=== PATIENT | female | born 1950 | race Caucasian/White ===

== ENCOUNTER 2018-05-18 14:34 | Emergency (ER) | payer MEDICARE, OTHER ==
--- NOTE | 2018-05-18 16:13 | ED ---
Neurological HPI - HPI Summary HPI Summary: A 67 y/o female presents to [facility] with a chief complaint of neck pain. She claims that she hit her head 1.5 weeks ago, but everything was fine for a week. She claims that the last few days she feels a throbbing pain in the top of her head, and yesterday she felt neck pain along with right sided facial numbness and ear pain. She describes her neck pain as sore. At triage she rated her pain as a 2/10 in severity. She also c/o chest pain. She reports that touching her neck aggravates her pain. - History of Current Complaint Chief Complaint: EDChestPainROMI Stated Complaint: CHEST PAIN/HEAD INJURY/FACIAL NUMBNESS/NECK PAIN Time Seen by Provider: 05/18/18 15:51 Hx Obtained From: Patient Hx Last Menstrual Period: Years ago. Onset/Duration: Sudden Onset, Started days ago, Still Present Timing: Constant Onset Severity: Mild Current Severity: Mild Pain Intensity: 2 Pain Scale Used: 0-10 Numeric Character: Numbness/Tingling, Other: - She hit her head 1.5 weeks ago Aggravating: Unknown - touch aggravates her neck pain Alleviating: Nothing Associated Signs and Symptoms: Positive: Headache, Numbness, Chest Pain. Negative: Fever - Allergy/Home Medications Allergies/Adverse Reactions: Allergies Allergy/AdvReac Type Severity Reaction Status Date / Time cephalexin [From Keflex] Allergy Unknown Verified 05/18/18 14:44 Reaction Details ciprofloxacin [From Cipro] Allergy Unknown Verified 05/18/18 14:44 Reaction Details clindamycin Allergy Unknown Verified 05/18/18 14:44 Reaction Details iodine Allergy Unknown Verified 05/18/18 14:44 Reaction Details latex Allergy Hives Verified 05/18/18 14:44 metronidazole [From Flagyl] Allergy Unknown Verified 05/18/18 14:44 Reaction Details Milk Containing Products Allergy GI Upset Verified 05/18/18 14:44 moxifloxacin [From Avelox] Allergy Hives Verified 05/18/18 14:44 prednisone Allergy Unknown Verified 05/18/18 14:44 Reaction Details sulfamethoxazole Allergy Hives Verified 05/18/18 14:44 [From Bactrim] trimethoprim [From Bactrim] Allergy Hives Verified 05/18/18 14:44 PMH/Surg Hx/FS Hx/Imm Hx Endocrine/Hematology History: Reports: Hx Thyroid Disease - hypothyroid Denies: Hx Diabetes Cardiovascular History: Denies: Hx Congestive Heart Failure, Hx Deep Vein Thrombosis, Hx Hypertension , Hx Myocardial Infarction, Hx Pacemaker/ICD Respiratory History: Denies: Hx Asthma, Hx Chronic Obstructive Pulmonary Disease (COPD), Hx Lung Cancer, Hx Pneumonia, Hx Pulmonary Embolism GI History: Reports: Hx Diverticulosis, Other GI Disorders - celiac's Denies: Hx Gall Bladder Disease, Hx Gastrointestinal Bleed, Hx Ulcer, Hx Urosepsis History: Denies: Hx Kidney Stones, Hx Renal Disease Musculoskeletal History: Denies: Hx Osteoporosis Sensory History: Reports: Hx Contacts or Glasses Denies: Hx Hearing Aid Opthamlomology History: Reports: Hx Contacts or Glasses Neurological History: Denies: Hx Dementia, Hx Migraine, Hx Seizures, Hx Transient Ischemic Attacks (TIA) Psychiatric History: Denies: Hx Anxiety, Hx Depression, Hx Panic Disorder, Hx Schizophrenia, Hx Bipolar Disorder - Cancer History Hx Chemotherapy: No Hx Radiation Therapy: No - Surgical History Surgery Procedure, Year, and Place[facility] [place] Hx Anesthesia Reactions: No - Immunization History Date of Tetanus Vaccine: unknown Infectious Disease History: No Infectious Disease History: Denies: Hx Clostridium Difficile, Hx Hepatitis, Hx Human Immunodeficiency Virus (HIV), Hx of Known/Suspected MRSA, Hx Shingles, Hx Tuberculosis, Hx Known/ Suspected VRE, Hx Known/Suspected VRSA, History Other Infectious Disease, Traveled Outside the [place] in Last 30 Days - Family History Known Family History: Positive: Hypertension, Other - breast cancer - Social History Alcohol Use: None Substance Use Type: Reports: None Smoking Status (MU): Never Smoked Tobacco Review of Systems Negative: Fever Positive: Ear Ache Musculoskeletal: Other - positive: neck pain Positive: Headache, Numbness All Other Systems Reviewed And Are Negative: Yes Physical Exam - Summary Physical Exam Summary: Appearance: The patient is well-nourished in no acute distress and in no acute pain. Skin: The skin is warm and dry and skin color reflects adequate perfusion. HEENT: The head is normocephalic and atraumatic. The pupils are equal and reactive. The conjunctivae are clear and without drainage. Nares are patent and without drainage. Mouth reveals moist mucous membranes and the throat is without erythema and exudate. The external ears are intact. Fluid behind right eardrum. The tympanic membranes are intact. Neck: The neck is supple with full range of motion and non-tender. There are no carotid bruits. There is no neck vein distension. Respiratory: Chest is non-tender. Lungs are clear to auscultation and breath sounds are symmetrical and equal. Cardiovascular: Heart is regular rate and rhythm. There is no murmur or rub auscultated. There is no peripheral edema and pulses are symmetrical and equal. Abdomen: The abdomen is soft and non-tender. There are normal bowel sounds heard in all four quadrants and there is no organomegaly palpated. Musculoskeletal: There is no back tenderness noted. Extremities are non-tender with full range of motion. There is good capillary refill. There is no peripheral edema or calf tenderness elicited. Neurological: Tender right posterior occipital lobe. Patient is alert and oriented to person, place and time. The patient has symmetrical motor strength in all four extremities. Cranial nerves are grossly intact. Deep tendon reflexes are symmetrical and equal in all four extremities. Psychiatric: The patient has an appropriate affect and does not exhibit any anxiety or depression. Triage Information Reviewed: Yes Vital Signs On Initial Exam: Initial Vitals Temp Pulse Resp BP Pulse Ox 98.0 F 72 16 167/90 99 05/18/18 14:36 05/18/18 14:36 05/18/18 14:36 05/18/18 14:36 05/18/18 14:36 Vital Signs Reviewed: Yes - Enedelia Coma Scale Best Eye Response: 4 - Spontaneous Best Motor Response: 6 - Obeys Commands Best Verbal Response: 5 - Oriented Coma Scale Total: 15 Diagnostics - Vital Signs Vital Signs Temp Pulse Resp BP Pulse Ox 05/18/18 14:36 98.0 F 72 16 167/90 99 - Laboratory Result Diagrams: 05/18/18 16:18 05/18/18 16:18 Lab Statement: Any lab studies that have been ordered have been reviewed, and results considered in the medical decision making process. - CT Brain CT Interpretation Completed By: Radiologist Summary of CT Findings: NO ACUTE INTRACRANIAL PATHOLOGY. ED physician has reviewed this imaging report. cervical spine CT Interpretation Completed By: Radiologist Summary of CT Findings: DEGENERATIVE DISC DISEASE AND OSTEOARTHRITIS. NO ACUTE OSSEOUS INJURY TO THE CERVICAL SPINE. ED physician has reviewed this imaging report. Re-Evaluation - Re-Evaluation First Eval Re-Evaluation Time: 18:00 Change: Improved Comment: Discussed results, Pt is ready for DC Course/Dx - Course Course Of Treatment: Ms. Stevens presents complaining of a right earache, some transient numbness of the right side of her face. Pain behind her right ear that radiates up to the top of her head and some mild pain in the back of her head on the right. She was nontoxic in appearance is stable vital signs. Assessment fluid behind her right ear drum. No lymphadenopathy was found that she was tender over the origin of her occipital nerve. I'm not sure what all was causing the symptoms I think she should be treated for right otitis media and get follow-up with her PCP. - Diagnoses Provider Diagnoses: Otitis media Discharge - Sign-Out/Discharge Documenting (check all that apply): Patient Departure - DC Patient Received Moderate/Deep Sedation with Procedure: No - Discharge Plan Condition: Stable Disposition: HOME Prescriptions: Amoxicillin/Clavulanate TAB* [Augmentin TAB 875*] 875 mg PO BID #20 tab Referrals: Sloane Andrews MD [Primary Care Provider] - (2-3 days) Additional Instructions: Return to the ED if you experience any new or worsening symptoms. - Billing Disposition and Condition Condition: STABLE Disposition: Home - Attestation Statements Document Initiated by Raulito: Yes Documenting Scribe: Patricio Teague Provider For Whom Raulito is Documenting (Include Credential): Conrado Jay MD Scribe Attestation: IPatricio, scribed for Conrado Jay MD on 05/18/18 at 1840. Scribe Documentation Reviewed: Yes Provider Attestation: The documentation as recorded by the Ptaricio sharpe accurately reflects the service I personally performed and the decisions made by me, Conrado Jay MD Status of Scribvidal Document: Viewed
[2018-05-18 16:25] LABS: ABS Basophils 0 10^3/ul (0-0.2); ABS Eosinophils 0 10^3/ul (0-0.6); ABS Lymphocytes 1.5 10^3/ul (1.0-4.8); ABS Monocytes 0.5 10^3/ul (0-0.8); ABS Neutrophils 3.3 10^3/ul (1.5-7.7); ABS Nucleated RBC 0 10^3/ul; Eosinophil % 0.9 %; Hematocrit 41 % (33-41); Lymphocyte % 28.7 %; Mean Corpuscular HGB Conc 34 g/dL (31-36); Mean Corpuscular Hemoglobin 32 pg (27-31); Mean Corpuscular Volume 95 fL (80-97); Mean Platelet Volume 7.9 fL (7.4-10.4); Nucleated Red Blood Cells % 0.1; Platelet Count 214 10^3/uL (150-450); Red Blood Count 4.36 10^6 /uL (3.70-4.87); Red Cell Distribution Width 14 % (10.5-15); White Blood Count 5.4 10^3/uL (3.5-10.8)
[2018-05-18 16:47] LABS: ALT 14 U/L (7-52); AST 19 U/L (13-39); Albumin 4.3 g/dL (3.2-5.2); Albumin/Globulin Ratio 1.7 (1-3); Alkaline Phosphatase 48 U/L (34-104); Anion Gap 1 mmol/L (2-11); BUN/Creatinine Ratio 18.7 (8-20); Blood Urea Nitrogen 14 mg/dL (6-24); C Reactive Protein < 1.00 mg/L (<8.01); CO2 Carbon Dioxide 29 mmol/L (22-32); Calcium 9.5 mg/dL (8.6-10.3); Chloride 109 mmol/L (101-111); EGFR African American 92.7 (>60); EGFR Non-African American 76.6 (>60); Globulin 2.6 g/dL (2-4); Glucose 98 mg/dL (70-100); Potassium 3.9 mmol/L (3.5-5.0); Sodium 139 mmol/L (135-145); Total Protein 6.9 g/dL (6.4-8.9)
[2018-05-18 18:37] VITALS: BP 159/76
== END 2018-05-18 18:37 | disposition home or self-care (01) ==
LOC: ED 14:34
DX: H66.90 Otitis media, unspecified, unspecified ear (principal); E03.9 Hypothyroidism, unspecified; K90.0 Celiac disease; M50.30 Other cervical disc degeneration, unspecified cervical region; M47.9 Spondylosis, unspecified; Z88.3 Allergy status to other anti-infective agents; Z88.8 Allergy status to other drugs, medicaments and biological substances; Z88.2 Allergy status to sulfonamides; Z91.040 Latex allergy status
CPT/HCPCS: 36415; 70450; 72125; 80053; 84484; 85025; 86140; 93005; 99282

== ENCOUNTER 2018-07-27 09:36 | Emergency (ER) | payer MEDICARE, OTHER ==
[2018-07-27] MEDS ORDERED: Tetracaine 0.5% OPTH.SOL 4 ML* 1 DROP BTL LEFT EYE ONE (11:47)
[2018-07-27] MEDS ORDERED: Fluorescein Sodium TOPICAL* 1 MG TEST STRIP OPHTHALMIC ONE (11:47)
--- NOTE | 2018-07-27 12:07 | UC ---
Eye Complaint HPI - HPI Summary HPI Summary: 67-year-old female presents with complaints of left eye redness and drainage. States yesterday she was working outdoors and some wooden debris blown into her face and eyes. She flushed the eyes out and felt everything was okay but this morning she awoke with the left eye redness and drainage. Denies fever, chills , visual disturbances, photophobia, foreign body sensation, or URI symptoms. - History of Current Complaint Chief Complaint: UCEye Stated Complaint: LT EYE INJURY Time Seen by Provider: 07/27/18 11:46 Hx Obtained From: Patient Hx Last Menstrual Period: Years ago. Pain Intensity: 0 - Allergies/Home Medications Allergies/Adverse Reactions: Allergies Allergy/AdvReac Type Severity Reaction Status Date / Time cephalexin [From Keflex] Allergy Unknown Verified 07/27/18 09:46 Reaction Details ciprofloxacin [From Cipro] Allergy Unknown Verified 07/27/18 09:46 Reaction Details clindamycin Allergy Unknown Verified 07/27/18 09:46 Reaction Details iodine Allergy Unknown Verified 07/27/18 09:46 Reaction Details latex Allergy Hives Verified 07/27/18 09:46 metronidazole [From Flagyl] Allergy Unknown Verified 07/27/18 09:46 Reaction Details Milk Containing Products Allergy GI Upset Verified 07/27/18 09:46 moxifloxacin [From Avelox] Allergy Hives Verified 07/27/18 09:46 prednisone Allergy Unknown Verified 07/27/18 09:46 Reaction Details sulfamethoxazole Allergy Hives Verified 07/27/18 09:46 [From Bactrim] trimethoprim [From Bactrim] Allergy Hives Verified 07/27/18 09:46 Home Medications: Home Medications Lansoprazole 15 mg PO DAILY 07/27/18 [History Confirmed 07/27/18] PMH/Surg Hx/FS Hx/Imm Hx Endocrine History: Hypothyroidism GI/ History: Gastroesophageal Reflux Other History Of: Negative For: HIV, Hepatitis B, Hepatitis C - Surgical History Surgical History: Yes Surgery Procedure, Year, and Place[facility] [place] - Family History Known Family History: Positive: Hypertension, Other - breast cancer - Social History Occupation: Retired Lives: With Family Alcohol Use: None Substance Use Type: None Smoking Status (MU): Never Smoked Tobacco - Immunization History Most Recent Influenza Vaccination: 2010 Most Recent Tetanus Shot: unknown Most Recent Pneumonia Vaccination: 2014 Review of Systems All Other Systems Reviewed And Are Negative: Yes Constitutional: Negative: Fever, Chills Eyes: Positive: Drainage, Eye Redness. Negative: Blurred Vision, Diplopia, Photophobia ENT: Negative: Sore Throat, Ear Ache, Nasal Discharge, Sinus Congestion, Sinus Pain/Tenderness Respiratory: Negative: Cough Cardiovascular: Positive: Negative Gastrointestinal: Positive: Negative Genitourinary: Positive: Negative Musculoskeletal: Positive: Negative Neurological: Positive: Negative Is Patient Immunocompromised?: No Physical Exam - Summary Physical Exam Summary: GENERAL APPEARANCE: Well developed, well nourished, alert and cooperative, and appears to be in no acute distress. EYES: Right eye normal. Conjunctival erythema with small amount of purulent drainage noted to eyelashes. PERRL, EOM intact. Vision is grossly intact. Visual acuity reviewed. Tetracaine and fluorosceine were instilled into the left eye and examined under magnification using Wood's lamp. No abrasion, FB, or penetrating injury noted. CARDIAC: Normal S1 and S2. No S3, S4 or murmurs. Rhythm is regular. There is no peripheral edema, cyanosis or pallor. Extremities are warm and well perfused. Capillary refill is less than 2 seconds. Peripheral pulses intact. LUNGS: Clear to auscultation without rales, rhonchi, wheezing or diminished breath sounds. ABDOMEN: Positive bowel sounds. Soft, nondistended, nontender. No guarding or rebound. No masses or hepatosplenomegally. MUSKULOSKELETAL: ROM intact to all extremities. No joint erythema or tenderness. Normal muscular development. Normal gait. SKIN: Skin normal color, texture and turgor with no lesions or eruptions. Triage Information Reviewed: Yes Vital Signs: Initial Vital Signs Temp 98 F 07/27/18 09:43 Pulse 72 07/27/18 09:43 Resp 16 07/27/18 09:43 BP 133/67 07/27/18 09:43 Pulse Ox 99 07/27/18 09:43 Vital Signs Reviewed: Yes Eye Complaint Course/Dx - Course Course Of Treatment: 67-year-old female presents with complaints of left eye redness and drainage. States yesterday she was working outdoors and some wooden debris blown into her face and eyes. She flushed the eyes out and felt everything was okay but this morning she awoke with the left eye redness and drainage. Denies fever, chills , visual disturbances, photophobia, foreign body sensation, or URI symptoms. Patient had conjunctival erythema with small amount of purulent drainage noted to eyelashes. PERRL, EOM intact. Vision is grossly intact. Visual acuity reviewed. Tetracaine and fluorosceine were instilled into the left eye and examined under magnification using Wood's lamp. No abrasion, FB, or penetrating injury noted. Will treat her for a bacterial conjunctivitis with erythromycin ophthalmic ointment 4 times a day for 5 days. She is to follow-up with her primary care provider in 3 days if symptoms are not improving. Anticipatory guidance at warning symptoms reviewed with the patient. Verbalizes understanding and agrees with plan of care. - Differential Dx/Diagnosis Differential Diagnosis/HQI/PQRI: Conjunctivitis, Corneal Abrasion, Foreign Body Provider Diagnosis: Conjunctivitis of left eye Discharge - Sign-Out/Discharge Documenting (check all that apply): Patient Departure All imaging exams completed and their final reports reviewed: No Studies - Discharge Plan Condition: Stable Disposition: HOME Patient Education Materials: Conjunctivitis (ED) Referrals: Sloane Andrews MD [Primary Care Provider] - 3 Days Additional Instructions: Start erythromycin opthalmic ointment. Instill a thin ribbon to the inner lower eyelid then blink to spread it around 4 times a day for 5 days. To avoid reinfection or spreading infection: * Use washcloths and towels once then launder. * Do not share washcloths or towels with others. * Change your pillow case each morning until you have finished treatment. * You should throw out any eye makeup, especially mascara, and use a new one once you have finished treatment. Follow up here or with your primary care provider in 3 days if no improvement. Seek immediate medical attention in the emergency room if you develop fever greater than 100.5 F, have pain or swelling of the eye, visual disturbances, loss of vision, or any worsening of symptoms. - Billing Disposition and Condition Condition: STABLE Disposition: Home
[2018-07-27] MEDS ORDERED: Erythromycin OPTH OINT* APPLIC OINT LEFT EYE ONE (12:17)
[2018-07-27 12:38] VITALS: BP 151/83
== END 2018-07-27 12:37 | disposition home or self-care (01) ==
LOC: UCEAST 09:36
DX: H10.32 Unspecified acute conjunctivitis, left eye (principal); K21.9 Gastro-esophageal reflux disease without esophagitis; Z88.2 Allergy status to sulfonamides; Z88.8 Allergy status to other drugs, medicaments and biological substances; Z88.1 Allergy status to other antibiotic agents; Z91.040 Latex allergy status; Z91.011 Allergy to milk products
CPT/HCPCS: 99212; A9270-GY; G0463